=== PATIENT | male | born 1980 | race Caucasian/White ===

== ENCOUNTER 2017-05-03 16:36 | Emergency (ER) | payer OTHER ==
[~2017-05-03] VITALS: Ht 182.9 cm; Wt 113.4 kg
--- NOTE | 2017-05-03 16:45 | NUR ---
PT AWAITING MSE
--- NOTE | 2017-05-03 18:32 | NUR ---
MSE COMPLETED, PT D/C'D JOHN, ACI/RX X4 GIVEN. PT AMBULATED W/O DIFF/TOOK ALL BELONGINGS
[2017-05-03 18:33] VITALS: BP 145/89
== END 2017-05-03 18:34 | disposition home or self-care (01) ==
LOC: ER 16:37
DX: H66.91 Otitis media, unspecified, right ear (principal); H72.91 Unspecified perforation of tympanic membrane, right ear; L40.8 Other psoriasis
CPT/HCPCS: 99283; A4663